=== PATIENT | female | born 1945 | race Caucasian/White ===

== ENCOUNTER 2018-01-21 07:57 | Emergency (ER) | payer MEDICARE, BC ==
[2018-01-21 08:22] VITALS: BP 116/73
--- NOTE | 2018-01-21 08:56 | UC ---
Dano Villarreal Julia, scribed for Yolanda Norris MD on 01/21/18 at 0853 . Minor Trauma HPI - HPI Summary HPI Summary: This patient is a 72 year old F presenting to [facility] [place] Urgent care with a chief complaint L wrist pain and edema beginning last evening s/p a fall described as a tuck and roll down two concrete stairs, occurring yesterday morning when she slipped in "floppy shoes." Pt josué LOC. No bleeding from eyes, ear, nose, and mouth. No cp, sob abd pain No n/v/d. No neck or back pain. no other injuries. Pt has not taken analgesia. Pt is RHD. No elbow or shoulder pain. Pt has applied ice. Pt also with abraison to knee. Pt tdap UTD per RN who called PCP office. no anticoagulants Pt's medications reviewed this visit - History of Current Complaint Chief Complaint: UCUpperExtremity Stated Complaint: HAND INJURY Time Seen by Provider: 01/21/18 08:25 Hx Obtained From: Patient ?: No Onset/Duration: Lasting Days, Still Present, Worse Since - last night Onset Of Pain: Post Accident Severity Initially: Mild Severity Currently: Moderate Pain Intensity: 6 Pain Scale Used: 0-10 Numeric Mechanism Of Injury: Blunt Trauma, Fall From A Standing Position - down stairs Aggravating Factor(s): Movement, Other: - making a fist Alleviating Factor(s): Ice, Rest Associated Signs And Symptoms: Positive: Ecchymosis, Swelling. Negative: Loss Of Consciousness - Allergies/Home Medications Allergies/Adverse Reactions: Allergies Allergy/AdvReac Type Severity Reaction Status Date / Time acetaminophen Allergy Altered Verified 01/21/18 08:17 [From Darvocet-N 100] Mental Status cefuroxime Allergy Hives Verified 01/21/18 08:17 hydrocodone Allergy GI Upset Verified 01/21/18 08:17 propoxyphene Allergy Altered Verified 01/21/18 08:17 [From Darvocet-N 100] Mental Status sulfamethoxazole Allergy Hives Verified 01/21/18 08:17 [From Bactrim] trimethoprim [From Bactrim] Allergy Hives Verified 01/21/18 08:17 bee allergy Allergy anaphylacti Uncoded 01/21/18 08:17 c SMOKE/PERFUMES Allergy ASTHMA Uncoded 01/21/18 08:17 Home Medications: Home Medications Ibuprofen TAB* [Advil TAB*] 200 mg PO PRN 01/21/18 [History] PMH/Surg Hx/FS Hx/Imm Hx Previously Healthy: Yes Cardiovascular History: Hypertension Respiratory History: Asthma, Pneumonia - Surgical History Surgical History: Yes Surgery Procedure, Year, and Place: [id number]. [id number]. 2012-[facility] EYE [facility]ARACT[facility] - Family History Known Family History: Positive: Cardiac Disease, Other - alzheimer's and CA - mother - Social History Occupation: Retired Lives: With Family Alcohol Use: Daily Alcohol Amount: 1-2 GLASSES OF WINE DAILY- OCCASIONALLY Substance Use Type: None Smoking Status (MU): Never Smoked Tobacco - Immunization History Most Recent Influenza Vaccination: 2015 Most Recent Tetanus Shot: UP TO DATE Most Recent Pneumonia Vaccination: UP TO DATE Review of Systems ENT: Negative - bleeding from eyes, ear nose or mouth Gastrointestinal: Negative - vomiting and nausea Genitourinary: Negative Motor: Negative Musculoskeletal: Edema - L wrist, Myalgia - L wrist, hand Psychological: Negative All Other Systems Reviewed And Are Negative: No Physical Exam Triage Information Reviewed: Yes Appearance: Well-Appearing, No Pain Distress, Well-Nourished Vital Signs: Initial Vital Signs Temp 98.4 F 01/21/18 08:18 Pulse 60 01/21/18 08:18 Resp 16 01/21/18 08:18 BP 116/73 01/21/18 08:18 Pulse Ox 97 01/21/18 08:18 Vital Signs Reviewed: Yes Eye Exam: Normal Eyes: Positive: Conjunctiva Clear ENT Exam: Normal ENT: Positive: Normal ENT inspection, Hearing grossly normal, Pharynx normal, TMs normal Dental: Positive: Percussion Tenderness @ Neck exam: Normal Neck: Positive: Supple, Nontender, No Lymphadenopathy Respiratory Exam: Normal Respiratory: Positive: Chest non-tender, Lungs clear, Normal breath sounds, No respiratory distress, No accessory muscle use Cardiovascular Exam: Normal Cardiovascular: Positive: RRR, No Murmur, Pulses Normal, Other: - 2+ radial, 2+ ulna CBT 2 sec all digits Abdominal Exam: Normal Abdomen Description: Positive: Nontender Bowel Sounds: Positive: Present Musculoskeletal: Positive: Other: - + flex/ext elbow + pronate/supinate + flex/ ext wrist with discomfort right 4thh/5th MC + diffuse ecchymosis and edema right dorsum hand no crepitus No pain along phalanges Neurological: Positive: Other: - + thumb up, a ok finger cross finger spread Psychological Exam: Normal Psychological: Positive: Normal Response To Family Skin: Positive: Other - ecchymosis and edema right dorsum hand abraison right knee - non suturable Diagnostics - Radiology L Hand XR Radiology Interpretation Completed By: Radiologist - 1. OSTEOPENIA. 2. OSTEOARTHRITIS. 3. NO ACUTE OSSEOUS INJURY. THE DEGREE OF OSTEOPENIA MAY MAKE A NONDISPLACED FRACTURE RADIOGRAPHICALLY OCCULT. IF SYMPTOMS PERSIST, RECOMMEND REPEAT IMAGING. Physician has reviewed this report L Wrist XR Radiology Interpretation Completed By: Radiologist - 1. OSTEOPENIA. 2. OSTEOARTHRITIS. 3. NO ACUTE OSSEOUS INJURY. THE DEGREE OF OSTEOPENIA MAY MAKE A NONDISPLACED FRACTURE RADIOGRAPHICALLY OCCULT. IF SYMPTOMS PERSIST, RECOMMEND REPEAT IMAGING. Physician has reviewed this report. Minor Trauma Course/Dx - Course Course Of Treatment: Pt with ecchymosis and edema right dorsum hand following mechanical fall yesterday evening. Pt with LOC. no neck or back pain. contusion and discomfort left hand MC. no fx on xray. splint. motrin. ice. elevate. pcp f/u - Differential Dx/Diagnosis Differential Diagnosis/HQI/PQRI: Abrasion(s) Provider Diagnoses: abraison, contusion hand sprain Discharge - Discharge Plan Condition: Stable Disposition: HOME Patient Education Materials: Contusion in Adults (ED), Hand Sprain (ED), Abrasion (ED) Referrals: Archana Corbett, [Primary Care Provider] - Additional Instructions: - WEar splint for comfort and support - wear as much as possible for the next 5- 7 days - okay to alternate ibuprofen (advil, motrin) and tylenol every 3 hours for pain. Take with food. do NOT take for more than 4-5 days - elevate to help with swelling and pain - apply ice (wrapped in a towel) 20 minutes at a time, 2-3 times a day - okay to apply a thin layer of antibiotics to your wound. Monitor for signs of infection - if you develop erythema, red streaking, odor you should be re- evaluated for infection - Contact your doctor to schedule a follow-up appointment. Contact your doctor or return with questions or concerns The documentation as recorded by the Dano goins Julia accurately reflects the service I personally performed and the decisions made by me, Yolanda Norris MD.
--- NOTE | 2018-01-21 09:09 | RAD ---
HISTORY: Fall, left hand and wrist swelling COMPARISONS: None VIEWS: 5, Frontal, lateral, and oblique views of the left wrist with frontal and lateral views of the left hand. Evaluation of the fourth digit is limited by metallic jewelry. FINDINGS: BONE DENSITY: There is diffuse osteopenia. BONES: There is no displaced fracture. JOINTS: There is advanced osteoarthritis of the first CMC joint and of the interphalangeal joints. ALIGNMENT: There is no dislocation. SOFT TISSUES: Unremarkable. OTHER FINDINGS: None. IMPRESSION: 1. OSTEOPENIA. 2. OSTEOARTHRITIS. 3. NO ACUTE OSSEOUS INJURY. THE DEGREE OF OSTEOPENIA MAY MAKE A NONDISPLACED FRACTURE RADIOGRAPHICALLY OCCULT. IF SYMPTOMS PERSIST, RECOMMEND REPEAT IMAGING.
== END 2018-01-21 09:29 | disposition home or self-care (01) ==
LOC: UCEAST 07:57
DX: M85.842 Other specified disorders of bone density and structure, left hand (principal); M19.032 Primary osteoarthritis, left wrist; Z88.1 Allergy status to other antibiotic agents; Z88.5 Allergy status to narcotic agent; Z91.048 Other nonmedicinal substance allergy status
CPT/HCPCS: 99212; G0463

== ENCOUNTER 2023-01-03 08:18 | Observation (INO) ==
[~2023-01-03 08:18] MED LIST: Buffered Lidocaine 1% SYRIN 1 ml INTRADERM ONE; Lactated Ringers 1000 ml BAG 1,000 ML IV SCH
[2023-01-03] MEDS ORDERED: ceFAZolin 2 GM PREMIX 2 GM/50 ML BAG ONE (08:30)
[2023-01-03 09:16] LABS: Activated Partial Thrombo Time 32.8 seconds (26.0-38.0); INR 1.03 (0.88-1.18)
[2023-01-03] MEDS ORDERED: Midazolam 2 mg/2 ml VIAL 1 mg/ml 2 ml VIAL (2 mg) ONE ×2 (09:43→10:53)
[2023-01-03] MEDS ORDERED: Acetaminophen IV 1 GM/100ML 1,000 MG/100 ML BAG IV PRN (09:45)
[2023-01-03] MEDS ORDERED: Naloxone 0.4 mg VIAL 0.4 mg/ml 1 ml VIAL IV PRN (09:45)
[2023-01-03] MEDS ORDERED: HYDROmorphone 1 MG/1 ML SYRINGE IV PRN (09:45)
[2023-01-03] MEDS ORDERED: fentaNYL 100 mcg/2 ml 50 MCG/ML VIAL IV PRN (09:45)
[2023-01-03] MEDS ORDERED: ROPIVACAINE 5 MG/ML 30 ML BTL (0.5%) ONE ×2 (09:49→12:32)
[2023-01-03] MEDS ORDERED: fentaNYL 100 mcg/2 ml 50 MCG/ML VIAL ONE (10:57)
[2023-01-03] MEDS ORDERED: Magnesium Hydroxide LIQ 30 ML UDC PO PRN (12:09)
[2023-01-03] MEDS ORDERED: Morphine 2 MG/ML SYRINGE IV PRN (12:09)
[2023-01-03] MEDS ORDERED: Lactulose 30 ml UDC PO PRN (12:09)
[2023-01-03] MEDS ORDERED: Phenylephrine IV 10 MG/ML 1 ml VIAL ONE (12:25)
[2023-01-03] MEDS ORDERED: EPINEPHRINE 0.3 MG/0.3 ML IM PRN (13:50)
[2023-01-03] MEDS ORDERED: Albuterol/Ipratropium NEB.SOL (2.5/0.5 MG) 3 ML NEB.SOLN INH PRN (13:50)
[2023-01-03] MEDS ORDERED: Albuterol HFA INHALER 8 gm MDI INH PRN (13:50)
[2023-01-03] MEDS ORDERED: AUTO INJECTOR IM PRN (13:50)
[2023-01-03] MEDS: Lactated Ringers 1000 ml BAG 1,000 ML IV SCH (15:49)
[2023-01-03] MEDS ORDERED: Mometasone 220 MCG MDI INH SCH (19:00)
[2023-01-03] MEDS: Prochlorperazine 5 mg/ml 2 ml VIAL (10 mg) IV PRN (19:38)
[2023-01-03] MEDS: Clindamycin 600 MG/D5W BAG 600 MG/50 ML BAG IV SCH (20:05)
[2023-01-03] MEDS: Magnesium Hydroxide LIQ 30 ML UDC PO SCH (22:10)
[2023-01-04] MEDS: Clindamycin 600 MG/D5W BAG 600 MG/50 ML BAG IV SCH ×2 (03:08→09:22)
[2023-01-04] MEDS: Lactated Ringers 1000 ml BAG 1,000 ML IV SCH (03:09)
[2023-01-04] MEDS: Prochlorperazine 5 mg/ml 2 ml VIAL (10 mg) IV PRN ×2 (03:13→09:33)
[2023-01-04 06:03] LABS: Hematocrit 36 % (35-47); Hemoglobin 12.4 g/dL (12.0-16.0); Mean Platelet Volume 7.8 fL (7.4-10.4); Platelet Count 301 10^3/uL (150-450)
[2023-01-04 06:45] LABS: Calcium 8.4 mg/dL (8.6-10.3); Creatinine, Serum 0.52 mg/dL (0.51-0.95); Potassium 3.7 mmol/L (3.5-5.0); eGFR CKD-EPI 95.6 (>60)
[2023-01-04] MEDS: Magnesium Hydroxide LIQ 30 ML UDC PO SCH (08:04)
[2023-01-04] MEDS ORDERED: Vitamin THERAPEUTIC TAB PO SCH (09:00)
[2023-01-04] MEDS ORDERED: Cholecalciferol (VIT D3) 1,000 unit TAB PO SCH (09:00)
[2023-01-04] MEDS ORDERED: Scopolamine 1 mg/72hr PATCH TRANSDERM SCH (10:00)
[2023-01-04 11:09] VITALS: BP 135/77
== END 2023-01-04 14:20 | disposition home or self-care (01) ==
LOC: OR 08:18 → SSU 08:18
PROVIDERS: ADMIT Orthopaedic Surgery Adult Reconstructive Orthopaedic Surgery; ATTEND Orthopaedic Surgery Adult Reconstructive Orthopaedic Surgery